=== PATIENT | female | born 1940 | race Caucasian/White ===

== ENCOUNTER 2017-07-07 10:02 | Emergency (ER) | payer MEDICARE, OTHER ==
[~2017-07-07] VITALS: Wt 80.0 kg
[2017-07-07] MEDS ORDERED: SOD CHLORIDE 0.9% 500 ML IV STA (10:18)
[2017-07-07] MEDS ORDERED: ONDANSETRON 4 MG INJ IV STA (10:18)
[2017-07-07] MEDS ORDERED: morphine 4 MG/ML VIAL IV STA (10:18)
--- NOTE | 2017-07-07 10:27 | ERD ---
ER Documentation Chief Complaint Date/Time DATE: 07/07/17 TIME: 10:25 Chief Complaint ABD PAIN X 2 WEEKS HPI This is a 77-year-old female complaining of right sided abdominal pain for a week. The pain is getting worse over the past couple of days described as sharp. Nothing seems to make it worse or better. The patient had nausea vomiting this morning that was nonbloody. Patient has a history of hypertension but has no chest pain or shortness of breath or headache. She says she has no diarrhea, hematuria or dysuria. ROS All systems reviewed and are negative except as per history of present illness. Medications Home Meds Active Scripts Hydrocodone/Acetaminophen ([place] 10-325 Tablet) 1 Each Tablet, 1 TAB PO Q6H Y for PAIN, #20 TAB Prov:ISAI RAMÍREZ DO 07/07/17 Dicyclomine Hcl* (Bentyl*) 10 Mg Capsule, 20 MG PO QID, #30 CAP Prov:PETRA RAMÍREZSTRAS A. DO 07/07/17 Allergies Allergies: Coded Allergies: No Known Allergy (Unverified , 07/07/17) PMhx/Soc Medical and Surgical Hx: pt denies Medical Hx, pt denies Surgical Hx Hx Miscellaneous Medical Probl: Yes (ASTHMA, DM HTN) Hx Alcohol Use: No Hx Substance Use: No Hx Tobacco Use: No Smoking Status: Current every day smoker FmHx Family History: No coronary disease Physical Exam Vitals Vital Signs Date Time Temp Pulse Resp B/P Pulse Ox O2 Delivery O2 Flow Rate FiO2 07/07/17 10:04 98.1 66 18 161/91 99 Physical Exam Const: Well-developed, well-nourished Head: Atraumatic, normocephalic Eyes: Normal Conjunctiva, PERRLA, EOMI, normal sclera, no nystagmus ENT: Normal External Ears, Nose and Mouth, moist mucus membranes. Neck: Full range of motion. No meningismus, no lymphadenopathy. Resp: Clear to auscultation bilaterally, no wheezing, rhonchi, rales Cardio: Regular rate and rhythm, no murmurs, S1 S2 present Abd: Soft, mild to moderate right lower quadrant tenderness non distended. Normal bowel sounds, no guarding or rebound, no pulsitile abdominal masses or bruits Skin: No petechiae or rashes, no ecchymosis , no maculopapular rash Back: No midline or flank tenderness Ext: No cyanosis, or edema, FROM x 4, normal inspection, neurovascularly intact x 4 Neur: Awake and alert, STR 5/5 x 4, sensation intact x 4, no focal findings, cerebellum intact Psych: Normal Mood and Affect Result Diagram: 07/07/17 1022 07/07/17 1022 Results 24 hrs Laboratory Tests Test 07/07/17 10:22 White Blood Count 7.610^3/ul Red Blood Count 4.8710^6/ul Hemoglobin 13.6g/dl Hematocrit 41.7% Mean Corpuscular Volume 85.6fl Mean Corpuscular Hemoglobin 27.9pg Mean Corpuscular Hemoglobin Concent 32.6g/dl Red Cell Distribution Width 13.2% Platelet Count 20765^3/UL Mean Platelet Volume 11.0fl Neutrophils % 77.7% Lymphocytes % 12.1% Monocytes % 8.6% Eosinophils % 0.7% Basophils % 0.5% Nucleated Red Blood Cells % 0.0/100WBC Neutrophils # 5.910^3/ul Lymphocytes # 0.910^3/ul Monocytes # 0.710^3/ul Eosinophils # 0.110^3/ul Basophils # 0.010^3/ul Nucleated Red Blood Cells # 0.010^3/ul Prothrombin Time 13.6Sec Prothrombin Time Ratio 1.1 INR International Normalized Ratio 1.04 Activated Partial Thromboplast Time 34.6Sec Sodium Level 131mmol/L Potassium Level 3.6mmol/L Chloride Level 90mmol/L Carbon Dioxide Level 30mmol/L Anion Gap 15 Blood Urea Nitrogen 17mg/dl Creatinine 0.86mg/dl Glucose Level 163mg/dl Calcium Level 9.3mg/dl Total Bilirubin 0.5mg/dl Direct Bilirubin 0.00mg/dl Indirect Bilirubin 0.5mg/dl Aspartate Amino Transf (AST/SGOT) 44IU/L Alanine Aminotransferase (ALT/SGPT) 26IU/L Alkaline Phosphatase 88IU/L Troponin I < 0.012ng/ml Total Protein 8.0g/dl Albumin 4.3g/dl Globulin 3.70g/dl Albumin/Globulin Ratio 1.16 Lipase 342U/L Current Medications Medications (Trade) Dose Ordered Sig/James Route PRN Reason Start Time Stop Time Status Last Admin Dose Admin Sodium Chloride (NS) 500 ml @ 500 mls/hr Q1H STAT IV 07/07/17 10:18 07/07/17 11:17 DC 07/07/17 10:38 Morphine Sulfate (morphine) 4 mg ONCE STAT IV 07/07/17 10:18 07/07/17 10:21 DC 07/07/17 10:39 Ondansetron HCl (Zofran Inj) 4 mg ONCE STAT IV 07/07/17 10:18 07/07/17 10:21 DC 07/07/17 10:38 Nicardipine HCl (Cardene) 30 mg ONCE ONCE PO 07/07/17 10:30 07/07/17 10:31 DC Hydralazine HCl (Apresoline) 10 mg ONCE ONCE IV 07/07/17 10:30 07/07/17 10:31 DC 07/07/17 10:53 IV Flush 10 ml 10 ml STK-MED ONCE .ROUTE 07/07/17 11:05 07/07/17 11:06 DC Sodium Chloride (NS) 100 ml @ ud STK-MED ONCE .ROUTE 07/07/17 11:05 07/07/17 11:06 DC Iohexol (Omnipaque 300mg/ ml) 150 ml STK-MED ONCE .ROUTE 07/07/17 11:05 07/07/17 11:06 DC Procedures/MDM PROCEDURE: CT abdomen and pelvis with contrast. CLINICAL INDICATION: Abdominal Pain TECHNIQUE: CT scan of the abdomen and pelvis without oral contrast was performed and is reconstructed at 2.5 mm contiguous axial intervals from the dome of the diaphragm to the inferior pubic rami.. The patient was scanned with intravenous contrast. Sagittal and coronal reformatted images were obtained from the axial source images. The calculated radiation dose measures 1070 mGy centimeters. The CTDI measures the 21 mGy. Individualized dose optimization technique was used for the performance of this exam. This included 1. Automated exposure control. 2. Adjustment of the mA and / or kV according to the patient's size. 3. Use of iterative reconstructed technique. COMPARISON: None. FINDINGS: The lung bases are clear of any infiltrate or nodule. A small right pleural effusion is seen. The liver is of normal size and attenuation with no mass or ductal dilatation. There is a lobulated contour to the liver compatible with cirrhosis. Portal vein is patent. there are gallstones. No splenic or pancreatic abnormalities present. there are multiple small adenomas of the left adrenal gland. Kidneys enhance symmetrically and are of normal size and contour. No hydronephrosis, calculus or masses seen. Ureters are of normal course and caliber with no stone. No bladder mass or stone is present. Atrophic postmenopausal uterus and ovaries are normal. There is no aneurysm. No adenopathy is present. No bowel mass or obstruction is present. The appendix is normal. There is diverticulosis. No phlegmon, ascites or pneumoperitoneum is visualized. Mild degenerative spondylosis is present in the lumbar spine. IMPRESSION: No evidence of urolithiasis, obstructive uropathy, diverticulitis or appendicitis. Diverticulosis. Small right pleural effusion. Cirrhotic liver. Cholelithiasis. Degenerative spondylosis lumbar spine. .Keith Pina MD, MD Date Time Electronically viewed and signed by .Keith Pina MD, MD on 07/07/2017 11: 30 .A/ CC: ISAI RAMÍREZ DO Blood work is unremarkable. No elevation of liver function tests. Patient discharged home with Bentyl and [place] for gallstones. No evidence of appendicitis. Patient's pain is not controlled follow-up with her doctor Departure Diagnosis: Primary Impression: Gallstones Additional Impression: Abdominal pain Abdominal location: right lower quadrant Qualified Code: R10.31 - Right lower quadrant abdominal pain Condition: Stable ISAI RAMÍREZ DO Jul 07, 2017 10:27
[2017-07-07] MEDS ORDERED: NICARDipine HCL 30 MG CAPSULE PO ONE (10:30)
[2017-07-07] MEDS ORDERED: hydrALAzine 20 MG INJ IV ONE (10:30)
[2017-07-07 10:39] LABS: BASOPHILS % 0.5 % (0.0-2.0); EOSINOPHILS # 0.1 10^3/ul (0.0-0.5); EOSINOPHILS % 0.7 % (0.0-7.0); HEMATOCRIT 41.7 % (37.0-47.0); HEMOGLOBIN 13.6 g/dl (12.0-16.0); LYMPHOCYTES # 0.9 10^3/ul (0.8-2.9); LYMPHOCYTES % 12.1 % (15.0-51.0); MEAN CORPUSCULAR HEMOGLOBIN 27.9 pg (29.0-33.0); MEAN CORPUSCULAR HGB CONC 32.6 g/dl (32.0-37.0); MEAN CORPUSCULAR VOLUME 85.6 fl (82.0-101.0); MONOCYTE # 0.7 10^3/ul (0.3-0.9); MONOCYTES % 8.6 % (0.0-11.0); NEUTROPHIL # 5.9 10^3/ul (1.6-7.5); NEUTROPHILS % 77.7 % (39.0-77.0); PLATELET COUNT 202 10^3/UL (140-415); RED BLOOD COUNT 4.87 10^6/ul (4.20-5.40); RED CELL DISTRIBUTION WIDTH 13.2 % (11.5-14.5); WHITE BLOOD COUNT 7.6 10^3/ul (4.8-10.8)
[2017-07-07 10:47] LABS: INR 1.04; PROTIME 13.6 Sec (12.2-14.2); PT RATIO 1.1
[2017-07-07 10:48] LABS: PARTIAL THROMBOPLASTIN TIME 34.6 Sec (25.0-35.0)
[2017-07-07 10:52] LABS: ALANINE AMINOTRANSFERASE 26 IU/L (13-69); ALBUMIN 4.3 g/dl (3.3-4.9); ALBUMIN/GLOBULIN RATIO 1.16; ALKALINE PHOSPHATASE 88 IU/L (42-121); ANION GAP 15 (8-16); ASPARTATE AMINO TRANSFERASE 44 IU/L (15-46); BILIRUBIN,INDIRECT 0.5 mg/dl (0-1.1); BILIRUBIN,TOTAL 0.5 mg/dl (0.2-1.3); BLOOD UREA NITROGEN 17 mg/dl (7-20); CALCIUM 9.3 mg/dl (8.4-10.2); CARBON DIOXIDE 30 mmol/L (21-31); CHLORIDE 90 mmol/L (97-110); CREATININE 0.86 mg/dl (0.44-1.00); GLUCOSE 163 mg/dl (70-220); POTASSIUM 3.6 mmol/L (3.5-5.1); SODIUM 131 mmol/L (135-144)
[2017-07-07] MEDS ORDERED: SOD CHLORIDE 0.9% 100 ML ONE (11:05)
[2017-07-07] MEDS ORDERED: IOHEXOL 300MG/ML 150 ML BTL ONE (11:05)
--- NOTE | 2017-07-07 11:31 | RADRPT ---
PROCEDURE: CT abdomen and pelvis with contrast. CLINICAL INDICATION: Abdominal Pain TECHNIQUE: CT scan of the abdomen and pelvis without oral contrast was performed and is reconstruc nazanin at 2.5 mm contiguous axial intervals from the dome of the diaphragm to the inferior pubic rami.. The patient was scanned with intravenous contrast. Sagittal and coronal reformatted images were o btained from the axial source images. The calculated radiation dose measures 1070 mGy centimeters. T he CTDI measures the 21 mGy. Individualized dose optimization technique was used for the performance of this exam. This included 1. Automated exposure control. 2. Adjustment of the mA and / or kV according to the patient's size. 3. Use of iterative reconstructed technique. COMPARISON: None. FINDINGS: The lung bases are clear of any infiltrate or nodule. A small right pleural effusion is seen. The liver is of normal size and attenuation with no mass or ductal dilatation. There is a lobulated contour to the liver compatible with cirrhosis. Portal vein is patent. there are gallstones. No spl enic or pancreatic abnormalities present. there are multiple small adenomas of the left adrenal gla nd. Kidneys enhance symmetrically and are of normal size and contour. No hydronephrosis, calculus or m asses seen. Ureters are of normal course and caliber with no stone. No bladder mass or stone is pr esent. Atrophic postmenopausal uterus and ovaries are normal. There is no aneurysm. No adenopathy is present. No bowel mass or obstruction is present. The appendix is normal. There is diverticulosis. No phle gmon, ascites or pneumoperitoneum is visualized. Mild degenerative spondylosis is present in the lumbar spine. IMPRESSION: No evidence of urolithiasis, obstructive uropathy, diverticulitis or appendicitis. Diverticulosis. Small right pleural effusion. Cirrhotic liver. Cholelithiasis. Degenerative spondylosis lumbar spine. .Keith Pina MD, MD Date Time Electronically viewed and signed by .Keith Pina MD, on 07/07/2017 11:30 .A/
[2017-07-07 11:32] LABS: TROPONIN-I < 0.012 ng/ml (0.00-0.12)
[2017-07-07] MEDS ORDERED: DICY10CA60 PO (12:11)
[2017-07-07] MEDS ORDERED: HYDR-902 PO (12:11)
[2017-07-07] MEDS ORDERED: CAPT50TA3 PO (12:22)
[2017-07-07] MEDS ORDERED: ASPI-664 PO (12:22)
[2017-07-07] MEDS ORDERED: SITA1TAB PO (12:22)
[2017-07-07] MEDS ORDERED: METO-336 PO (12:23)
[2017-07-07] MEDS ORDERED: CARB1TAB47 PO (12:24)
[2017-07-07] MEDS ORDERED: MELO-216 PO (12:24)
[2017-07-07] MEDS ORDERED: CLON2TAB3 PO (12:25)
[2017-07-07] MEDS ORDERED: LOSA100T7 PO (12:25)
[2017-07-07] MEDS ORDERED: FURO40TA4 PO (12:26)
[2017-07-07] MEDS ORDERED: FER325 PO (12:26)
== END 2017-07-07 15:24 | disposition home or self-care (01) ==
LOC: E/R 10:02
DX: K80.20 Calculus of gallbladder without cholecystitis without obstruction (principal); R11.2 Nausea with vomiting, unspecified; J45.909 Unspecified asthma, uncomplicated; E11.9 Type 2 diabetes mellitus without complications; I10 Essential (primary) hypertension; F17.210 Nicotine dependence, cigarettes, uncomplicated
CPT/HCPCS: 36415; 74177; 80053; 83690; 84484; 85025; 85610; 85730; 96374; 96375; 99285; J0360; J2270; J2405; J7040; Q9967

== ENCOUNTER 2017-07-20 13:53 | Emergency (ER) | payer MEDICARE, OTHER ==
[~2017-07-20] VITALS: Wt 78.0 kg
[~2017-07-20 13:53] MED LIST: ASPI-664 PO; CAPT50TA3 PO; CARB1TAB47 PO; CLON2TAB3 PO; DICY10CA60 PO; FER325 PO; FURO40TA4 PO; HYDR-902 PO; LOSA100T7 PO; MELO-216 PO; METO-336 PO; SITA1TAB PO
== END 2017-07-20 20:23 | disposition left against medical advice (07) ==
LOC: E/R 13:53
DX: Z53.21 Procedure and treatment not carried out due to patient leaving prior to being seen by health care provider (principal)